=== PATIENT | male | born 1940 | race Caucasian/White ===

== ENCOUNTER → 2021-09-11 | Outpatient (CLI) | payer MEDICARE, BC ==
[2021-09-11 14:12] LABS: African American GFR (CKD) >90 (>60 ml/min/1.73 sqM); Blood Urea Nitrogen 16 mg/dL (9-20); Non-African American GFR(CKD) 81 (>60 ml/min/1.73 sqM)
--- NOTE | 2021-09-11 14:57 | CT ---
EXAMINATION TYPE: CT chest w con DATE OF EXAM: 09/11/2021 COMPARISON: Prior high resolution CT December 24, 2010. Prior chest x-ray August 21, 2021 HISTORY: abnormal chest xray CT DLP: 459.5 mGycm. Automated Exposure Control for Dose Reduction was Utilized. TECHNIQUE: CT scan of the thorax is performed following with IV Contrast, patient injected with 100 mL of Isovue 300. FINDINGS: LUNGS: There is 2 to 3 mm nodule in the periphery left upper lobe axial image 13. Larger nodule left lung apex on recent x-ray is not clearly seen on CT in the lung parenchyma. [id number] bibasila r linear scarring and/or atelectasis is seen. No suspicious greater than 5 mm noncalcified pulmonary nodules or masses. Small focal areas of pleural thickening in the bilateral lungs are identified with out calcification. No suspicious focal consolidation or groundglass opacity. No pleural effusion or p neumothorax seen. MEDIASTINUM: There are no greater than 1 cm hilar or mediastinal lymph nodes. No cardiomegaly or pe ricardial effusion is seen. Severe three-vessel coronary artery calcification is noted. 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 OTHER: Prominent 1.9 x 0.8 cm lymph node anterior to IVC on image 65 is noted. IMPRESSION: No suspicious greater than 5 mm noncalcified pulmonary nodules.
== END | disposition home or self-care (01) ==
LOC: RADCTMAIN 13:26
PROVIDERS: ATTEND Internal Medicine Critical Care Medicine
DX: R91.8 Other nonspecific abnormal finding of lung field (principal)
CPT/HCPCS: 82565; 84520; 71260; 36415; Q9967

== ENCOUNTER 2024-01-27 12:06 | Day surgery (SDC) | payer MEDICARE ==
[~2024-01-27 12:06] MED LIST: ATROPINE SULFATE 0.4 MG/ML 1 ML VIAL IM ONE; LACTATED RINGERS 1,000 ML IV SCH; LIDOCAINE 1% (10MG/ML) FOR IV START INTRADERMA PRN; ONDANSETRON 4 MG/2 ML VIAL IVP PRN
[2024-01-27] MEDS: IV FLUID CONTINUATION 1,000 ML IV ONE (12:31)
[2024-01-27 12:41] VITALS: TEMP 97.4
[2024-01-27] MEDS: LACTATED RINGERS 1,000 ML IV SCH (12:52)
[2024-01-27 12:53] LABS: Glucose,Whole Blood 135 mg/dL (70-110)
[2024-01-27] MEDS ORDERED: PROPOFOL 10 MG/ML 20 ML VIAL IV ONE (12:58)
[2024-01-27] MEDS ORDERED: LIDOCAINE 1% INJ 10MG/ML (20 ML MDV) ONE (12:58)
[2024-01-27 13:23] VITALS: PULSE 87; RESP 16
[2024-01-27 13:41] VITALS: BP 110/77
--- NOTE | 2024-01-27 21:04 | PCN ---
PROCEDURE NOTE PULMONARY/CRITICAL CARE PROCEDURE NOTE: PROCEDURE: Bronchoscopy; airway examination; therapeutic lavage; bronchoalveolar lavage, right middle lobe. PREOPERATIVE DIAGNOSES: Chronic obstructive pulmonary disease exacerbation, retained secretions. POSTOPERATIVE DIAGNOSES: Chronic obstructive pulmonary disease exacerbation, retained secretions. INVENTORY AND PRICING ASSOCIATE: Dr. Yamile Morgan. The patient's procedure took place in room #3 [facility] [place]. There was informed consent and universal timeout. DESCRIPTION OF PROCEDURE: The anesthesia provided monitored anesthesia care (MAC). After the patient was adequately sedated and being fully monitored, the bronchoscope was inserted through the right nostril. It passed through the nasopharynx into the oropharynx. The hypopharynx was identified. The hypopharyngeal structures including anterior commissure; true cords; false cords; arytenoids; piriform sinuses, right and left; vallecula; epiglottis, all appeared normal. The glottic opening was topicalized. The bronchoscope was pushed through the glottic opening into the trachea. Trachea appeared normal. There were scant secretions noted throughout the trachea. Tracheal jordy was sharp. The right and left mainstem were topicalized. The right upper lobe and its 3 segments, right middle lobe and its 2 segments, right lower lobe and its 5 segments, left upper lobe proper and its 2 segments, lingula and its 2 segments and left lower lobe and its 4 segments all appeared relatively normal. There was mild to moderate bronchitis throughout. The mucosa was erythematous and hyperemic. There was no dominant mass or tumor. The secretions were mild to moderate in severity. They were frothy. There was no bleeding. The bronchoscope was then wedged into the right middle lobe. A formal BAL took place. 30 mL of turbid fluid was recovered, which should be sent to the laboratory for cytology and microbiology. The patient tolerated the procedure well. Any additional secretions were suctioned. The bronchoscope was withdrawn. The patient will be recovered. MMODL / IJN: [id number] /
[2024-01-27 22:58] LABS: Appearance,BF Slightly Cloudy (Clear); RBC, Body Fluid 525 /UL (0-2000)
[2024-01-31 09:22] LABS: Nucleated Cells, Body Fluid 280 /UL
== END 2024-01-27 14:01 | disposition home or self-care (01) ==
LOC: ORWHC2ENDO 12:06
PROVIDERS: ATTEND Internal Medicine Critical Care Medicine
DX: J44.1 Chronic obstructive pulmonary disease with (acute) exacerbation (principal); I10 Essential (primary) hypertension; E78.5 Hyperlipidemia, unspecified; E11.42 Type 2 diabetes mellitus with diabetic polyneuropathy; Z87.891 Personal history of nicotine dependence; Z79.4 Long term (current) use of insulin; Z79.899 Other long term (current) drug therapy; Z88.7 Allergy status to serum and vaccine; Z79.51 Long term (current) use of inhaled steroids
CPT/HCPCS: 88108; 88305; 89050; 87070; 87205; 87116; 87102; 87206; 31624; J2001; J2704